=== PATIENT | female | born 2000 | race Caucasian/White ===

== ENCOUNTER 2019-07-14 09:40 | Emergency (ER) | payer BC ==
[2019-07-14 10:30] VITALS: BP 102/56
--- NOTE | 2019-07-14 11:39 | UC ---
Throat Pain/Nasal Virgilio HPI - HPI Summary HPI Summary: Headache, sinus congestion, dry throat in the morning, raspy voice x2 days. Pt denies fever, fatigue, chest congestion. - History of Current Complaint Chief Complaint: UCGeneralIllness Stated Complaint: ST/RESENDIZ/CONGESTION Time Seen by Provider: 07/14/19 11:39 Hx Obtained From: Patient Hx Last Menstrual Period: 06/25/19 ?: No Onset/Duration: Sudden Onset, Lasting Days Severity: Mild Pain Intensity: 0 Associated Signs & Symptoms: Positive: Dysphagia, Sinus Discomfort, Nasal Discharge - Allergies/Home Medications Allergies/Adverse Reactions: Allergies Allergy/AdvReac Type Severity Reaction Status Date / Time No Known Allergies Allergy Verified 07/14/19 10:25 Home Medications: Home Medications Azithromyxin CHARLES (NF) [Z-Charles (Zithromax) 250 mg tabs #6] 2 tab PO .TODAY, THEN 1 DAILY #6 tab 07/14/19 [Rx] Levothyroxine TAB* [Synthroid TAB*] 50 mcg PO DAILY 07/14/19 [History Confirmed 07/14/19] predniSONE 20 mg TAB [Deltasone 20 MG TAB*] 40 mg PO DAILY #10 tab 07/14/19 [Rx] PMH/Surg Hx/FS Hx/Imm Hx Previously Healthy: Yes - Surgical History Surgical History: None - Family History Known Family History: Negative: Hypertension - Social History Alcohol Use: Occasionally Substance Use Type: None Smoking Status (MU): Never Smoked Tobacco Review of Systems All Other Systems Reviewed And Are Negative: Yes Constitutional: Positive: Chills, Fatigue ENT: Positive: Sore Throat, Ear Ache, Nasal Discharge, Sinus Congestion Respiratory: Positive: Cough Neurological/Mental Status: Positive: Headache Is Patient Immunocompromised?: No Physical Exam Triage Information Reviewed: Yes Appearance: Well-Nourished, Ill-Appearing, Pain Distress Vital Signs: Initial Vital Signs Temp 97.4 F 07/14/19 10:26 Pulse 70 07/14/19 10:26 Resp 15 07/14/19 10:26 BP 102/56 07/14/19 10:26 Pulse Ox 100 07/14/19 10:26 Vital Signs Reviewed: Yes Eye Exam: Normal ENT: Positive: Pharyngeal erythema - with pnd, Nasal congestion, Nasal drainage , TM bulging - bilateral Dental Exam: Normal Neck exam: Normal Respiratory Exam: Normal Respiratory: Positive: Chest non-tender, Lungs clear, Normal breath sounds Cardiovascular Exam: Normal Abdominal Exam: Normal Bowel Sounds: Positive: Present Musculoskeletal Exam: Normal Neurological Exam: Normal Psychological Exam: Normal Skin Exam: Normal Throat Pain/Nasal Course/Dx - Course Course Of Treatment: hx obtained, exam performed ,meds reviewed, treated for sinusitis - Differential Dx/Diagnosis Differential Diagnosis/HQI/PQRI: Sinusitis Provider Diagnosis: Sinusitis, Serous otitis media Discharge ED - Sign-Out/Discharge Documenting (check all that apply): Patient Departure All imaging exams completed and their final reports reviewed: No Studies - Discharge Plan Condition: Stable Disposition: HOME Prescriptions: Azithromyxin CHARLES (NF) [Z-Charles (Zithromax) 250 mg tabs #6] 2 tab PO .TODAY, THEN 1 DAILY #6 tab predniSONE 20 mg TAB [Deltasone 20 MG TAB*] 40 mg PO DAILY #10 tab Patient Education Materials: Sinusitis (ED) Forms: *Work Release Referrals: No Primary Care Phys,NOPCP [Primary Care Provider] - Additional Instructions: Take the medication as prescribed. increase fluids and get plenty of rest humidify the air and nasal saline wash will help - Billing Disposition and Condition Condition: STABLE Disposition: Home
== END 2019-07-14 12:25 | disposition home or self-care (01) ==
LOC: UCCORT 09:40
DX: J32.9 Chronic sinusitis, unspecified (principal); H65.93 Unspecified nonsuppurative otitis media, bilateral
CPT/HCPCS: 99202; G0463